=== PATIENT | female | born 1965 | race African-American/Black ===

== ENCOUNTER 2024-08-12 16:18 | Emergency (ER) | payer MEDICAID ==
[~2024-08-12] VITALS: Ht 165.1 cm; Wt 80.0 kg
[2024-08-12 16:22] VITALS: O2SAT 99
[2024-08-12] MEDS: LORAZEPAM 1MG TABLET PO ONE (16:55)
[2024-08-12 18:42] LABS: EOSINOPHILS % 0.2 % (0.0-5.0); HEMOGLOBIN. 13.4 g/dL (12.0-16.0); LYMPHOCYTES % 41.7 % (20.0-50.0); MEAN CORPUSCULAR HEMOGLOBIN 33.8 pg (28.0-32.0); MEAN CORPUSCULAR HGB CONC 34.4 g/dL (31.0-37.0); MEAN CORPUSCULAR VOLUME 98.2 fL (81.0-99.0); MEAN PLATELET VOLUME 7.1 fl (7.4-10.4); MONOCYTES % 2.8 % (2.0-8.0); NEUTROPHILS % 54.3 % (40.0-76.0); PLATELET 276 x1000/uL (130-400); RED BLOOD CELL COUNT 3.97 mill/uL (4.2-5.4); RED CELL DISTRIBUTION WIDTH 13.8 % (11.6-14.6); WHITE BLOOD COUNT 9.2 x1000/uL (4.5-11.0)
[2024-08-12 18:47] LABS: CHLORIDE 109 mEq/L (98-107); POTASSIUM 3.6 mEq/L (3.5-5.1); SODIUM 144 mEq/L (136-145)
[2024-08-12 18:49] LABS: CALCIUM 8.7 mg/dL (8.7-10.4); CARBON DIOXIDE 25 mEq/L (21-32)
[2024-08-12 18:54] LABS: CREATININE 0.7 mg/dL (0.6-1.0); GLUCOSE 76 mg/dL (70-105); UREA NITROGEN BLOOD 8 mg/dL (9-23)
[2024-08-12 18:56] LABS: ACETAMINOPHEN < 2 ug/mL (10-30)
[2024-08-12 19:03] LABS: ETHANOL BLOOD 326 mg/dL (<10)
[2024-08-12] MEDS: CHLORDIAZEPOXIDE 25MG CAPSULE PO ONE (22:01)
[2024-08-12 22:19] LABS: CLARITY URINE CLEAR (CLEAR); COLOR URINE YELLOW (YELLOW); GLUCOSE URINE NEGATIVE (NEGATIVE); KETONES URINE TRACE (NEGATIVE); LEUKOCYTE ESTERASE URINE NEGATIVE (NEGATIVE); NITRITE URINE NEGATIVE (NEGATIVE); OCCULT BLOOD URINE NEGATIVE (NEGATIVE); PH URINE 5.5 (4.5-8.0); PROTEIN URINE NEGATIVE (NEGATIVE); SPECIFIC GRAVITY URINE 1.015 (1.005-1.030); UROBILINOGEN URINE 0.2 E.U./dL (0.2-1.0)
[2024-08-12 22:27] LABS: *AMPHETAMINES SCREEN URINE NEGATIVE (NEGATIVE)
[2024-08-12 22:28] LABS: *BARBITURATES SCREEN URINE NEGATIVE (NEGATIVE); *BENZODIAZEPINES SCREEN URINE NEGATIVE (NEGATIVE); *COCAINE SCREEN URINE NEGATIVE (NEGATIVE); CANNABINOID URINE SCREEN NEGATIVE (NEGATIVE); ECSTASY MDMA SCREEN URINE NEGATIVE (NEGATIVE); METHADONE URINE SCREEN NEGATIVE (NEGATIVE); OPIATES URINE SCREEN NEGATIVE (NEGATIVE); PHENCYCLIDINE URINE SCREEN NEGATIVE (NEGATIVE)
[2024-08-13 09:30] VITALS: BP 134/80; PULSE 70; RESP 16; TEMP 36.78072; O2SAT 100
== END 2024-08-13 10:16 | disposition home or self-care (01) ==
LOC: ER 16:18
DX: R45.851 Suicidal ideations (principal); F39 Unspecified mood [affective] disorder
CPT/HCPCS: 36415; 80048; 80305; 80307; 80320; 80329; 81003; 85025; 99285; G0480

== ENCOUNTER 2024-08-13 19:11 | Emergency (ER) | payer MEDICAID ==
[~2024-08-13] VITALS: Ht 165.1 cm; Wt 65.0 kg
[2024-08-13 19:12] VITALS: O2SAT 98
[2024-08-13] MEDS: SODIUM CHLORIDE 0.9% 1,000 ML IV ONE (20:08)
[2024-08-13] MEDS: ONDANSETRON HCL 4MG/2ML INJ IV ONE (20:18)
[2024-08-13 20:25] LABS: BASOPHILS % 1.3 % (0.0-2.0); EOSINOPHILS % 0.6 % (0.0-5.0); HEMATOCRIT. 41.6 % (36.0-48.0); HEMOGLOBIN. 14.1 g/dL (12.0-16.0); MEAN CORPUSCULAR HEMOGLOBIN 33.4 pg (28.0-32.0); MEAN CORPUSCULAR HGB CONC 33.9 g/dL (31.0-37.0); MEAN CORPUSCULAR VOLUME 98.5 fL (81.0-99.0); MEAN PLATELET VOLUME 7.6 fl (7.4-10.4); MONOCYTES % 6.3 % (2.0-8.0); NEUTROPHILS % 48.8 % (40.0-76.0); PLATELET 270 x1000/uL (130-400); RED BLOOD CELL COUNT 4.22 mill/uL (4.2-5.4); RED CELL DISTRIBUTION WIDTH 13.4 % (11.6-14.6); WHITE BLOOD COUNT 8.9 x1000/uL (4.5-11.0)
[2024-08-13 20:27] LABS: CLARITY URINE CLEAR (CLEAR); COLOR URINE YELLOW (YELLOW); GLUCOSE URINE NEGATIVE (NEGATIVE); KETONES URINE NEGATIVE (NEGATIVE); LEUKOCYTE ESTERASE URINE NEGATIVE (NEGATIVE); NITRITE URINE NEGATIVE (NEGATIVE); OCCULT BLOOD URINE NEGATIVE (NEGATIVE); PROTEIN URINE NEGATIVE (NEGATIVE); SPECIFIC GRAVITY URINE 1.004 (1.005-1.030); UROBILINOGEN URINE 0.2 E.U./dL (0.2-1.0)
[2024-08-13 20:33] LABS: CHLORIDE 107 mEq/L (98-107); POTASSIUM 5.6 mEq/L (3.5-5.1); SODIUM 143 mEq/L (136-145)
[2024-08-13 20:34] LABS: CALCIUM 9.2 mg/dL (8.7-10.4); CARBON DIOXIDE 28 mEq/L (21-32)
[2024-08-13 20:35] LABS: *AMPHETAMINES SCREEN URINE NEGATIVE (NEGATIVE); *BARBITURATES SCREEN URINE NEGATIVE (NEGATIVE); *BENZODIAZEPINES SCREEN URINE NEGATIVE (NEGATIVE); *COCAINE SCREEN URINE NEGATIVE (NEGATIVE); CANNABINOID URINE SCREEN NEGATIVE (NEGATIVE); ECSTASY MDMA SCREEN URINE NEGATIVE (NEGATIVE); METHADONE URINE SCREEN NEGATIVE (NEGATIVE); OPIATES URINE SCREEN NEGATIVE (NEGATIVE); PHENCYCLIDINE URINE SCREEN NEGATIVE (NEGATIVE)
[2024-08-13 20:39] LABS: CREATININE 0.6 mg/dL (0.6-1.0); ETHANOL BLOOD 300 mg/dL (<10); GLUCOSE 95 mg/dL (70-105); UREA NITROGEN BLOOD 7 mg/dL (9-23)
[2024-08-13 20:41] LABS: ACETAMINOPHEN < 2 ug/mL (10-30); ALANINE AMINOTRANSFERASE 14 IU/L (10-49); ALBUMIN 4.8 g/dL (3.2-4.8); ASPARTATE AMINOTRANSFERASE 46 IU/L (<34); BILIRUBIN DIRECT 0.1 mg/dL (<=3.0); BILIRUBIN TOTAL 0.5 mg/dL (0.1-1.0); PROTEIN TOTAL 7.9 g/dL (6.0-8.3)
[2024-08-14 00:09] LABS: CHLORIDE 113 mEq/L (98-107); SODIUM 146 mEq/L (136-145)
[2024-08-14 00:10] LABS: CARBON DIOXIDE 26 mEq/L (21-32)
[2024-08-14 00:11] LABS: CALCIUM 8.6 mg/dL (8.7-10.4)
[2024-08-14 00:15] LABS: CREATININE 0.6 mg/dL (0.6-1.0); GLUCOSE 96 mg/dL (70-105)
[2024-08-14 00:16] LABS: UREA NITROGEN BLOOD 7 mg/dL (9-23)
[2024-08-14 00:37] LABS: POTASSIUM 3.5 mEq/L (3.5-5.1)
[2024-08-14] MEDS: CHLORDIAZEPOXIDE 25MG CAPSULE PO ONE (02:36)
[2024-08-14 09:25] VITALS: BP 132/72; PULSE 73; RESP 14; TEMP 36.78072; O2SAT 98
== END 2024-08-14 12:01 | disposition home or self-care (01) ==
LOC: ER 19:11
DX: R45.851 Suicidal ideations (principal); F10.229 Alcohol dependence with intoxication, unspecified; Z20.822 Contact with and (suspected) exposure to COVID-19; Y90.8 Blood alcohol level of 240 mg/100 ml or more
CPT/HCPCS: 80076; 80305; 80048; 81003; 80307; 80329; 80320; 85025; 36415; 93005; 96374; 99285; 87426; J2405; J7030; Z7610; G0480

== ENCOUNTER 2024-08-22 10:55 | Emergency (ER) | payer MEDICAID ==
[~2024-08-22] VITALS: Ht 170.2 cm; Wt 65.0 kg
[2024-08-22 11:03] VITALS: O2SAT 97
[2024-08-22 11:45] LABS: BASOPHILS % 0.6 % (0.0-2.0); EOSINOPHILS % 0.5 % (0.0-5.0); HEMATOCRIT. 38.8 % (36.0-48.0); HEMOGLOBIN. 13.1 g/dL (12.0-16.0); LYMPHOCYTES % 45.2 % (20.0-50.0); MEAN CORPUSCULAR HEMOGLOBIN 33.5 pg (28.0-32.0); MEAN CORPUSCULAR HGB CONC 33.7 g/dL (31.0-37.0); MEAN CORPUSCULAR VOLUME 99.3 fL (81.0-99.0); MEAN PLATELET VOLUME 7.4 fl (7.4-10.4); NEUTROPHILS % 47.7 % (40.0-76.0); PLATELET 187 x1000/uL (130-400); WHITE BLOOD COUNT 6.7 x1000/uL (4.5-11.0)
[2024-08-22 11:57] LABS: CHLORIDE 108 mEq/L (98-107); POTASSIUM 3.5 mEq/L (3.5-5.1); SODIUM 144 mEq/L (136-145)
[2024-08-22 11:58] LABS: CALCIUM 8.5 mg/dL (8.7-10.4); CARBON DIOXIDE 23 mEq/L (21-32)
[2024-08-22 12:03] LABS: CREATININE 0.6 mg/dL (0.6-1.0); GLUCOSE 71 mg/dL (70-105); UREA NITROGEN BLOOD 9 mg/dL (9-23)
[2024-08-22 12:12] LABS: ETHANOL BLOOD 353 mg/dL (<10)
[2024-08-23 00:22] LABS: CLARITY URINE CLEAR (CLEAR); COLOR URINE YELLOW (YELLOW); GLUCOSE URINE NEGATIVE (NEGATIVE); KETONES URINE 1+ (NEGATIVE); LEUKOCYTE ESTERASE URINE NEGATIVE (NEGATIVE); NITRITE URINE NEGATIVE (NEGATIVE); OCCULT BLOOD URINE 1+ (NEGATIVE); PROTEIN URINE NEGATIVE (NEGATIVE); SPECIFIC GRAVITY URINE 1.014 (1.005-1.030)
[2024-08-23 00:30] LABS: *AMPHETAMINES SCREEN URINE NEGATIVE (NEGATIVE); *BARBITURATES SCREEN URINE NEGATIVE (NEGATIVE); *BENZODIAZEPINES SCREEN URINE PRESUMPTIVE POSITIVE (NEGATIVE); *COCAINE SCREEN URINE NEGATIVE (NEGATIVE); CANNABINOID URINE SCREEN NEGATIVE (NEGATIVE); ECSTASY MDMA SCREEN URINE NEGATIVE (NEGATIVE); METHADONE URINE SCREEN NEGATIVE (NEGATIVE); OPIATES URINE SCREEN NEGATIVE (NEGATIVE); PHENCYCLIDINE URINE SCREEN NEGATIVE (NEGATIVE)
[2024-08-23 00:42] LABS: BACTERIA URINE 2+; SQUAMOUS EPITHELIAL CELL URINE FEW /lpf (RARE/1+); WBC URINE 0-2 /hpf (0-2)
[2024-08-23] MEDS: ONDANSETRON 4MG ODT PO ONE (02:46)
[2024-08-23 10:41] VITALS: BP 127/71; PULSE 68; RESP 18; TEMP 36.89184; O2SAT 99
== END 2024-08-23 07:30 | disposition home or self-care (01) ==
LOC: ER 11:00
DX: R45.851 Suicidal ideations (principal); F10.129 Alcohol abuse with intoxication, unspecified; F12.10 Cannabis abuse, uncomplicated; Z20.822 Contact with and (suspected) exposure to COVID-19; Y90.8 Blood alcohol level of 240 mg/100 ml or more
CPT/HCPCS: 80305; 80048; 81003; 80307; 80329; 80320; 85025; 36415; 99285; 87426; Q0162; G0480

== ENCOUNTER 2024-08-24 03:41 | Emergency (ER) | payer MEDICAID ==
[~2024-08-24] VITALS: Ht 172.7 cm; Wt 77.0 kg
[2024-08-24 03:43] VITALS: O2SAT 95
[2024-08-24 04:41] LABS: CHLORIDE 105 mEq/L (98-107); SODIUM 141 mEq/L (136-145)
[2024-08-24 04:42] LABS: CALCIUM 9.3 mg/dL (8.7-10.4); CARBON DIOXIDE 27 mEq/L (21-32)
[2024-08-24 04:47] LABS: CREATININE 0.6 mg/dL (0.6-1.0); GLUCOSE 98 mg/dL (70-105); UREA NITROGEN BLOOD 5 mg/dL (9-23)
[2024-08-24 04:49] LABS: ACETAMINOPHEN 8 ug/mL (10-30)
[2024-08-24 04:56] LABS: ETHANOL BLOOD 309 mg/dL (<10)
[2024-08-24 05:18] LABS: CLARITY URINE CLEAR (CLEAR); COLOR URINE YELLOW (YELLOW); GLUCOSE URINE NEGATIVE (NEGATIVE); KETONES URINE NEGATIVE (NEGATIVE); LEUKOCYTE ESTERASE URINE NEGATIVE (NEGATIVE); NITRITE URINE NEGATIVE (NEGATIVE); OCCULT BLOOD URINE NEGATIVE (NEGATIVE); PROTEIN URINE NEGATIVE (NEGATIVE); SPECIFIC GRAVITY URINE 1.006 (1.005-1.030); UROBILINOGEN URINE 0.2 E.U./dL (0.2-1.0)
[2024-08-24] MEDS: IBUPROFEN 600MG TABLET PO ONE (05:20)
[2024-08-24 05:21] LABS: BASOPHILS % 0.5 % (0.0-2.0); EOSINOPHILS % 1.2 % (0.0-5.0); HEMATOCRIT. 41.6 % (36.0-48.0); HEMOGLOBIN. 14.2 g/dL (12.0-16.0); LYMPHOCYTES % 53.5 % (20.0-50.0); MEAN CORPUSCULAR HGB CONC 34.2 g/dL (31.0-37.0); MEAN CORPUSCULAR VOLUME 99.6 fL (81.0-99.0); MEAN PLATELET VOLUME 7.9 fl (7.4-10.4); MONOCYTES % 7.6 % (2.0-8.0); NEUTROPHILS % 37.2 % (40.0-76.0); PLATELET 197 x1000/uL (130-400); RED BLOOD CELL COUNT 4.18 mill/uL (4.2-5.4); RED CELL DISTRIBUTION WIDTH 13.7 % (11.6-14.6); WHITE BLOOD COUNT 6.2 x1000/uL (4.5-11.0)
[2024-08-24 05:27] LABS: *AMPHETAMINES SCREEN URINE NEGATIVE (NEGATIVE); *BARBITURATES SCREEN URINE NEGATIVE (NEGATIVE); *BENZODIAZEPINES SCREEN URINE PRESUMPTIVE POSITIVE (NEGATIVE); *COCAINE SCREEN URINE NEGATIVE (NEGATIVE); CANNABINOID URINE SCREEN NEGATIVE (NEGATIVE); ECSTASY MDMA SCREEN URINE NEGATIVE (NEGATIVE); METHADONE URINE SCREEN NEGATIVE (NEGATIVE); OPIATES URINE SCREEN NEGATIVE (NEGATIVE); PHENCYCLIDINE URINE SCREEN NEGATIVE (NEGATIVE)
[2024-08-24] MEDS: ARIPIPRAZOLE 5MG TABLET PO SCH (11:19)
[2024-08-24] MEDS: SERTRALINE HCL 50MG TABLET PO SCH (11:19)
[2024-08-24] MEDS: TRAZODONE HCL 50MG TABLET PO SCH (21:00)
[2024-08-25 14:54] VITALS: TEMP 36.78072
[2024-08-25 15:33] VITALS: BP 142/60; PULSE 60; RESP 16; O2SAT 100
[2024-08-25] MEDS ORDERED: CLONIDINE 0.1MG TABLET PO ONE (15:45)
== END 2024-08-25 16:06 ==
LOC: ER 03:41
DX: F20.9 Schizophrenia, unspecified (principal); F17.200 Nicotine dependence, unspecified, uncomplicated; F41.9 Anxiety disorder, unspecified; F10.20 Alcohol dependence, uncomplicated; F31.9 Bipolar disorder, unspecified; Z20.822 Contact with and (suspected) exposure to COVID-19; Z88.0 Allergy status to penicillin; Z79.899 Other long term (current) drug therapy; Z59.00 Homelessness unspecified; Y90.8 Blood alcohol level of 240 mg/100 ml or more
CPT/HCPCS: 36415; 73562; 80048; 80305; 80307; 80320; 80329; 81003; 85025; 87426; 93005; 99285; G0480

== ENCOUNTER 2024-08-30 08:15 | Emergency (ER) | payer MEDICAID ==
[~2024-08-30] VITALS: Ht 167.6 cm; Wt 68.0 kg
[2024-08-30 08:16] VITALS: O2SAT 94
[2024-08-30 09:35] LABS: CHLORIDE 113 mEq/L (98-107); DIFFERENTIAL COMMENT 0; EOSINOPHILS % 1.1 % (0.0-5.0); HEMATOCRIT. 39.4 % (36.0-48.0); HEMOGLOBIN. 12.8 g/dL (12.0-16.0); LYMPHOCYTES % 47.9 % (20.0-50.0); MEAN CORPUSCULAR HEMOGLOBIN 32.8 pg (28.0-32.0); MEAN CORPUSCULAR HGB CONC 32.5 g/dL (31.0-37.0); MEAN CORPUSCULAR VOLUME 101.1 fL (81.0-99.0); MEAN PLATELET VOLUME 7.8 fl (7.4-10.4); PLATELET 184 x1000/uL (130-400); POTASSIUM 3.3 mEq/L (3.5-5.1); RED CELL DISTRIBUTION WIDTH 15.1 % (11.6-14.6); SODIUM 146 mEq/L (136-145); WHITE BLOOD COUNT 6.1 x1000/uL (4.5-11.0)
[2024-08-30 09:36] LABS: CALCIUM 8.4 mg/dL (8.7-10.4); CARBON DIOXIDE 28 mEq/L (21-32)
[2024-08-30 09:41] LABS: CREATININE 0.5 mg/dL (0.6-1.0); GLUCOSE 93 mg/dL (70-105); UREA NITROGEN BLOOD 9 mg/dL (9-23)
[2024-08-30 09:43] LABS: ACETAMINOPHEN < 2 ug/mL (10-30)
[2024-08-30 09:50] LABS: ETHANOL BLOOD 345 mg/dL (<10)
[2024-08-30 09:56] LABS: HCG SCREEN NEGATIVE
[2024-08-30] MEDS: POTASSIUM CHLORIDE 20MEQ/PACKET PO NR (14:03)
[2024-08-30] MEDS ORDERED: DIPHENHYDRAMINE 50MG CAPSULE PO ONE (20:30)
[2024-08-30] MEDS: DIPHENHYDRAMINE 25MG CAPSULE PO NR (21:07)
[2024-08-31 04:52] VITALS: BP 118/64; PULSE 72; RESP 18; TEMP 36.89184; O2SAT 100
[2024-08-31 05:26] LABS: *AMPHETAMINES SCREEN URINE NEGATIVE (NEGATIVE); *BARBITURATES SCREEN URINE NEGATIVE (NEGATIVE); *BENZODIAZEPINES SCREEN URINE NEGATIVE (NEGATIVE); *COCAINE SCREEN URINE NEGATIVE (NEGATIVE)
[2024-08-31 05:27] LABS: CANNABINOID URINE SCREEN NEGATIVE (NEGATIVE); ECSTASY MDMA SCREEN URINE NEGATIVE (NEGATIVE); METHADONE URINE SCREEN NEGATIVE (NEGATIVE); OPIATES URINE SCREEN NEGATIVE (NEGATIVE); PHENCYCLIDINE URINE SCREEN NEGATIVE (NEGATIVE)
== END 2024-08-31 09:50 | disposition home or self-care (01) ==
LOC: ER 09:12
DX: R45.851 Suicidal ideations (principal); F41.9 Anxiety disorder, unspecified; F10.20 Alcohol dependence, uncomplicated; F32.A Depression, unspecified; F20.9 Schizophrenia, unspecified; Z88.0 Allergy status to penicillin; Z20.822 Contact with and (suspected) exposure to COVID-19; Y90.8 Blood alcohol level of 240 mg/100 ml or more
CPT/HCPCS: 80048; 80307; 80329; 80320; 84703; 85025; 36415; 99285; 87426; 80305; Q0163; Z7610; G0480

== ENCOUNTER 2024-09-04 20:32 | Emergency (ER) | payer MEDICAID ==
[~2024-09-04] VITALS: Ht 172.7 cm; Wt 64.0 kg
[2024-09-04 20:36] VITALS: BP 150/90; PULSE 120; RESP 14; TEMP 98.6; O2SAT 98
[2024-09-04 21:49] LABS: CHLORIDE 103 mEq/L (98-107); SODIUM 139 mEq/L (136-145)
[2024-09-04 21:50] LABS: BASOPHILS % 0.6 % (0.0-2.0); CARBON DIOXIDE 24 mEq/L (21-32); DIFFERENTIAL COMMENT 0; EOSINOPHILS % 0.1 % (0.0-5.0); HEMATOCRIT. 44.7 % (36.0-48.0); HEMOGLOBIN. 15.1 g/dL (12.0-16.0); LYMPHOCYTES % 41.4 % (20.0-50.0); MEAN CORPUSCULAR HEMOGLOBIN 33.8 pg (28.0-32.0); MEAN CORPUSCULAR HGB CONC 33.7 g/dL (31.0-37.0); MEAN CORPUSCULAR VOLUME 100.4 fL (81.0-99.0); MONOCYTES % 11.4 % (2.0-8.0); NEUTROPHILS % 46.5 % (40.0-76.0); PLATELET 273 x1000/uL (130-400); RED BLOOD CELL COUNT 4.46 mill/uL (4.2-5.4); RED CELL DISTRIBUTION WIDTH 14.8 % (11.6-14.6); WHITE BLOOD COUNT 6.5 x1000/uL (4.5-11.0)
[2024-09-04 21:51] LABS: CALCIUM 10.1 mg/dL (8.7-10.4)
[2024-09-04 21:55] LABS: CREATININE 0.7 mg/dL (0.6-1.0)
[2024-09-04 21:56] LABS: GLUCOSE 101 mg/dL (70-105); UREA NITROGEN BLOOD 8 mg/dL (9-23)
[2024-09-04 21:58] LABS: ACETAMINOPHEN < 2 ug/mL (10-30)
[2024-09-04 22:05] LABS: ETHANOL BLOOD 327 mg/dL (<10)
[2024-09-04 22:11] LABS: POTASSIUM 2.6 mEq/L (3.5-5.1)
[2024-09-05] MEDS ORDERED: POTASSIUM CHLORIDE 20MEQ/PACKET PO ONE (02:30)
== END 2024-09-04 22:21 | disposition left against medical advice (07) ==
LOC: ER 20:32
DX: T51.0X1A Toxic effect of ethanol, accidental (unintentional), initial encounter (principal); F20.9 Schizophrenia, unspecified; F41.9 Anxiety disorder, unspecified; Z88.0 Allergy status to penicillin; X58.XXXA Exposure to other specified factors, initial encounter
CPT/HCPCS: 36415; 80048; 80307; 80320; 80329; 85025; 99283; G0480

== ENCOUNTER 2024-09-05 10:39 | Emergency (ER) | payer MEDICAID ==
[~2024-09-05] VITALS: Ht 165.1 cm; Wt 70.0 kg
[2024-09-05 10:42] VITALS: O2SAT 95
[2024-09-05 12:03] LABS: BASOPHILS % 0.3 % (0.0-2.0); DIFFERENTIAL COMMENT 0; HEMATOCRIT. 44.2 % (36.0-48.0); HEMOGLOBIN. 14.6 g/dL (12.0-16.0); LYMPHOCYTES % 35.8 % (20.0-50.0); MEAN CORPUSCULAR HEMOGLOBIN 33.2 pg (28.0-32.0); MEAN CORPUSCULAR HGB CONC 32.9 g/dL (31.0-37.0); MEAN CORPUSCULAR VOLUME 100.8 fL (81.0-99.0); MEAN PLATELET VOLUME 8.1 fl (7.4-10.4); NEUTROPHILS % 52.9 % (40.0-76.0); PLATELET 247 x1000/uL (130-400); RED BLOOD CELL COUNT 4.39 mill/uL (4.2-5.4); WHITE BLOOD COUNT 9.6 x1000/uL (4.5-11.0)
[2024-09-05 12:15] LABS: CHLORIDE 106 mEq/L (98-107); POTASSIUM 4.1 mEq/L (3.5-5.1); SODIUM 141 mEq/L (136-145)
[2024-09-05 12:16] LABS: CALCIUM 9.2 mg/dL (8.7-10.4); CARBON DIOXIDE 25 mEq/L (21-32)
[2024-09-05 12:18] LABS: HCG SCREEN NEGATIVE
[2024-09-05 12:21] LABS: CREATININE 0.7 mg/dL (0.6-1.0); GLUCOSE 98 mg/dL (70-105); UREA NITROGEN BLOOD 9 mg/dL (9-23)
[2024-09-05 12:30] LABS: ETHANOL BLOOD 331 mg/dL (<10)
[2024-09-06 04:09] LABS: CLARITY URINE CLEAR (CLEAR); COLOR URINE YELLOW (YELLOW); GLUCOSE URINE NEGATIVE (NEGATIVE); KETONES URINE NEGATIVE (NEGATIVE); LEUKOCYTE ESTERASE URINE TRACE (NEGATIVE); NITRITE URINE NEGATIVE (NEGATIVE); OCCULT BLOOD URINE NEGATIVE (NEGATIVE); PROTEIN URINE TRACE (NEGATIVE); SPECIFIC GRAVITY URINE 1.017 (1.005-1.030); UROBILINOGEN URINE 0.2 E.U./dL (0.2-1.0)
[2024-09-06 04:17] LABS: *AMPHETAMINES SCREEN URINE NEGATIVE (NEGATIVE); *BARBITURATES SCREEN URINE NEGATIVE (NEGATIVE); *BENZODIAZEPINES SCREEN URINE NEGATIVE (NEGATIVE); *COCAINE SCREEN URINE NEGATIVE (NEGATIVE); CANNABINOID URINE SCREEN NEGATIVE (NEGATIVE); METHADONE URINE SCREEN NEGATIVE (NEGATIVE); OPIATES URINE SCREEN NEGATIVE (NEGATIVE); PHENCYCLIDINE URINE SCREEN NEGATIVE (NEGATIVE)
[2024-09-06 04:18] LABS: ECSTASY MDMA SCREEN URINE NEGATIVE (NEGATIVE)
[2024-09-06 06:30] LABS: SQUAMOUS EPITHELIAL CELL URINE 1+ /lpf (RARE/1+)
[2024-09-06 06:31] LABS: RBC URINE 0-2 /hpf (0-2); WBC URINE 0-2 /hpf (0-2)
[2024-09-06 06:36] LABS: BACTERIA URINE 1+
[2024-09-06] MEDS: QUETIAPINE FUMARATE 50MG TABLET PO SCH (13:26)
[2024-09-06 13:45] VITALS: BP 119/64; PULSE 70; RESP 18; TEMP 36.39180; O2SAT 96
== END 2024-09-06 14:26 ==
LOC: ER 10:39
DX: R45.851 Suicidal ideations (principal); F10.20 Alcohol dependence, uncomplicated; F20.9 Schizophrenia, unspecified; Z88.0 Allergy status to penicillin; Z59.00 Homelessness unspecified; Z20.822 Contact with and (suspected) exposure to COVID-19; Y90.8 Blood alcohol level of 240 mg/100 ml or more
CPT/HCPCS: 80048; 80320; 84703; 85025; 36415; 99285; 80305; 81003; 87426; Z7610; G0480

== ENCOUNTER 2024-09-17 08:58 | Inpatient (IN) | payer MEDICAID ==
[~2024-09-17] VITALS: Ht 170.2 cm; Wt 75.3 kg
[2024-09-17] MEDS ORDERED: IPRATROPIUM/ALBUTEROL 0.5-3(2.5)MG/3ML NEB HHN ONE (10:15)
[2024-09-17 10:23] LABS: BASOPHILS % 0.4 % (0.0-2.0); EOSINOPHILS % 0.1 % (0.0-5.0); HEMATOCRIT. 44.5 % (36.0-48.0); HEMOGLOBIN. 14.8 g/dL (12.0-16.0); LYMPHOCYTES % 36.6 % (20.0-50.0); MEAN CORPUSCULAR HEMOGLOBIN 33.2 pg (28.0-32.0); MEAN CORPUSCULAR HGB CONC 33.3 g/dL (31.0-37.0); MEAN CORPUSCULAR VOLUME 99.9 fL (81.0-99.0); MEAN PLATELET VOLUME 7.5 fl (7.4-10.4); MONOCYTES % 10.3 % (2.0-8.0); NEUTROPHILS % 52.6 % (40.0-76.0); PLATELET 234 x1000/uL (130-400); RED BLOOD CELL COUNT 4.45 mill/uL (4.2-5.4); RED CELL DISTRIBUTION WIDTH 15.4 % (11.6-14.6); WHITE BLOOD COUNT 9.3 x1000/uL (4.5-11.0)
[2024-09-17 10:36] LABS: CHLORIDE 106 mEq/L (98-107); SODIUM 143 mEq/L (136-145)
[2024-09-17 10:37] LABS: CALCIUM 9.5 mg/dL (8.7-10.4); CARBON DIOXIDE 25 mEq/L (21-32)
[2024-09-17 10:42] LABS: CREATININE 0.6 mg/dL (0.6-1.0); GLUCOSE 101 mg/dL (70-105); UREA NITROGEN BLOOD 8 mg/dL (9-23)
[2024-09-17 10:43] LABS: TROPONIN I HIGH SENSITIVITY 6 ng/L (3.0-34)
[2024-09-17 10:53] LABS: POTASSIUM 2.6 mEq/L (3.5-5.1)
[2024-09-17 10:54] LABS: ETHANOL BLOOD 293 mg/dL (<10)
[2024-09-17 13:01] LABS: TROPONIN I HIGH SENSITIVITY 6 ng/L (3.0-34)
[2024-09-17] MEDS: IPRATROPIUM/ALBUTEROL 0.5-3(2.5)MG/3ML NEB HHN NR (13:35)
[2024-09-17] MEDS: MAGNESIUM 2 G PREMIX 50 ML IV ONE (15:08)
[2024-09-17] MEDS: KCL 10MEQ/50ML PREMIX 50 ML IV SCH (15:35)
[2024-09-17] MEDS: POTASSIUM BICARB/CIT ACID 25 MEQ TABLET.EFF PO ONE (15:35)
[2024-09-17] MEDS: FOLIC ACID 1 MG, THIAMINE HCL 100 MG, MVI, ADULT NO.1 10 ML in DEXTROSE 5% WATER 1,000 ML IV ONE (15:35)
[2024-09-17] MEDS ORDERED: MAGNESIUM/ALUMINUM HYDROXIDE/SIMETHICONE 30ML UDC PO PRN (16:00)
[2024-09-17] MEDS ORDERED: CLONIDINE 0.1MG TABLET PO PRN (16:00)
[2024-09-17] MEDS ORDERED: DOCUSATE SODIUM 100MG CAPSULE PO PRN (16:00)
[2024-09-17] MEDS ORDERED: LORAZEPAM 2MG/ML INJ IV PRN (16:00)
[2024-09-17] MEDS ORDERED: IPRATROPIUM/ALBUTEROL 0.5-3(2.5)MG/3ML NEB HHN PRN (16:00)
[2024-09-17] MEDS ORDERED: DEXTROSE 50% WATER 50ML SYRINGE IV PRN (17:00)
[2024-09-17] MEDS: BLOOD SUGAR DIAGNOSTIC STRIP TEST SCH (17:00)
[2024-09-17 17:44] LABS: FOLIC ACID (FOLATE) SERUM 13.32 ng/mL (>5.38); VITAMIN B12 SERUM 532 pg/mL (211-911)
[2024-09-17] MEDS: INSULIN LISPRO 100 UNITS/ML SUBCUT SCH (18:20)
[2024-09-17 20:00] VITALS: BP 143/87; RESP 20; TEMP 36.6696; O2SAT 96
[2024-09-17] MEDS: CHLORDIAZEPOXIDE 25MG CAPSULE PO SCH (20:00)
[2024-09-17 21:16] LABS: AMYLASE 62 IU/L (30-118)
[2024-09-17 21:17] LABS: PHOSPHORUS 3.9 mg/dL (2.5-4.9)
[2024-09-17 21:38] VITALS: BP 142/100; PULSE 79; RESP 20; TEMP 36.33624; O2SAT 99
[2024-09-17 22:18] VITALS: BP 149/95; PULSE 83; RESP 18; TEMP 36.5292
[2024-09-17] MEDS ORDERED: DULA1.5P SUBCUT (22:41)
[2024-09-17] MEDS ORDERED: GABA-532 PO (22:41)
[2024-09-17] MEDS ORDERED: NICO-786 (22:41)
[2024-09-17] MEDS ORDERED: ARIP10TA56 PO (22:41)
[2024-09-17] MEDS ORDERED: SERT-112 PO (22:41)
[2024-09-17] MEDS ORDERED: AMLO10TA80 PO (22:41)
[2024-09-17] MEDS ORDERED: TRAZ-252 PO (22:41)
[2024-09-17] MEDS ORDERED: ACETAMINOPHEN 325MG TABLET PO PRN (23:00)
[2024-09-17] MEDS: POTASSIUM CHLORIDE 20MEQ TABLET SR PO NR (23:06)
[2024-09-17] MEDS: TRAZODONE HCL 50MG TABLET PO SCH (23:06)
[2024-09-18] VITALS: BP 149/89; PULSE 105; RESP 20; TEMP 36.114; O2SAT 97
[2024-09-18 04:00] VITALS: BP 117/96; PULSE 85; RESP 20; TEMP 36.6696; O2SAT 98
[2024-09-18 06:57] LABS: CHLORIDE 103 mEq/L (98-107); POTASSIUM 3.1 mEq/L (3.5-5.1); SODIUM 138 mEq/L (136-145)
[2024-09-18 06:58] LABS: CARBON DIOXIDE 30 mEq/L (21-32)
[2024-09-18 06:59] LABS: CALCIUM 9.4 mg/dL (8.7-10.4)
[2024-09-18 07:03] LABS: CREATINE KINASE MB FRACTION < 0.5 ng/mL (0.5-3.6); CREATININE 0.6 mg/dL (0.6-1.0); GLUCOSE 108 mg/dL (70-105); UREA NITROGEN BLOOD 13 mg/dL (9-23)
[2024-09-18 07:05] LABS: ALANINE AMINOTRANSFERASE 30 IU/L (10-49); ALBUMIN 3.7 g/dL (3.2-4.8); ASPARTATE AMINOTRANSFERASE 40 IU/L (<34); HEMATOCRIT 40.9 % (36.0-48.0); HEMOGLOBIN 13.7 g/dL (12.0-16.0); MEAN CORPUSCULAR HEMOGLOBIN 33.8 pg (28.0-32.0); MEAN CORPUSCULAR HGB CONC 33.6 g/dL (31.0-37.0); MEAN CORPUSCULAR VOLUME 100.6 fL (81.0-99.0); PLATELET 171 x1000/uL (130-400); RED BLOOD CELL COUNT 4.06 mill/uL (4.2-5.4); RED CELL DISTRIBUTION WIDTH 15.6 % (11.6-14.6); WHITE BLOOD COUNT 4.7 x1000/uL (4.5-11.0)
[2024-09-18 07:06] LABS: BILIRUBIN TOTAL 0.8 mg/dL (0.1-1.0); PROTEIN TOTAL 6.8 g/dL (6.0-8.3); TROPONIN I HIGH SENSITIVITY < 4 ng/L (3.0-34)
[2024-09-18 08:00] VITALS: BP 121/83; PULSE 89; RESP 16; TEMP 36.33624; O2SAT 97
[2024-09-18] MEDS: NICOTINE 21MG PATCH TD SCH (08:20)
[2024-09-18] MEDS: ARIPIPRAZOLE 5MG TABLET PO SCH (08:20)
[2024-09-18] MEDS: MULTIVITAMINS,THER W-MINERALS TABLET PO SCH (08:20)
[2024-09-18] MEDS: FOLIC ACID 1MG TABLET PO SCH (08:20)
[2024-09-18] MEDS ORDERED: SERTRALINE HCL 50MG TABLET PO SCH (09:00)
[2024-09-18] MEDS ORDERED: MVI, ADULT NO.1 10 ML, FOLIC ACID 1 MG, THIAMINE HCL 100 MG in SODIUM CHLORIDE 0.9% 1,0... IV ONE (09:00)
[2024-09-18 12:00] VITALS: BP 114/79; PULSE 66; RESP 16; TEMP 36.55848; O2SAT 98
[2024-09-18 13:43] LABS: HEPATITIS B SURFACE ANTIGEN NEGATIVE (Negative)
[2024-09-18 14:05] LABS: HEPATITIS C AB NON REACTIVE (Neg) (Negative)
[2024-09-18 16:00] VITALS: BP 109/81; PULSE 79; RESP 16; TEMP 36.83628; O2SAT 99
[2024-09-18] MEDS: MVI, ADULT NO.1 10 ML, FOLIC ACID 1 MG, THIAMINE HCL 100 MG in SODIUM CHLORIDE 0.9% 1,0... IV ONE (16:37)
[2024-09-18] MEDS: POTASSIUM CHLORIDE 20MEQ TABLET SR PO NR (19:02)
[2024-09-18] MEDS ORDERED: TRAZODONE HCL 50MG TABLET PO SCH (21:00)
[2024-09-19 08:48] LABS: HEMATOCRIT 38.9 % (36.0-48.0); MEAN CORPUSCULAR HEMOGLOBIN 34.3 pg (28.0-32.0); MEAN CORPUSCULAR HGB CONC 33.3 g/dL (31.0-37.0); PLATELET 135 x1000/uL (130-400); RED BLOOD CELL COUNT 3.78 mill/uL (4.2-5.4); RED CELL DISTRIBUTION WIDTH 15.7 % (11.6-14.6); WHITE BLOOD COUNT 4.6 x1000/uL (4.5-11.0)
[2024-09-19 08:49] VITALS: BP 118/79; PULSE 88; RESP 18; TEMP 36.6696; TEMP 36.66960; O2SAT 100
[2024-09-19 09:32] LABS: CARBON DIOXIDE 25 mEq/L (21-32); CHLORIDE 106 mEq/L (98-107); POTASSIUM 4.1 mEq/L (3.5-5.1); SODIUM 137 mEq/L (136-145)
[2024-09-19 09:37] LABS: CREATININE 0.5 mg/dL (0.6-1.0)
[2024-09-19] MEDS: THIAMINE HCL 100MG TABLET PO SCH (09:37)
[2024-09-19 09:38] LABS: GLUCOSE 87 mg/dL (70-105); UREA NITROGEN BLOOD 10 mg/dL (9-23)
[2024-09-19 09:40] LABS: PHOSPHORUS 3.9 mg/dL (2.5-4.9)
[2024-09-19 14:03] VITALS: BP 116/75; PULSE 76; TEMP 97.9; O2SAT 98
== END 2024-09-19 14:45 | disposition home or self-care (01) | DRG 425 ==
LOC: ER 08:58 → EDBEDREQTM 14:08 → EDBEDREQ 14:08 → 5WST 19:49 → 7WST 21:51
PROVIDERS: ADMIT Internal Medicine; ATTEND Internal Medicine
PROC: GZ56ZZZ Individual Psychotherapy, Supportive (ICD-10-PCS; principal; 2024-09-17)
DX: E87.6 Hypokalemia (principal); R45.851 Suicidal ideations; F25.9 Schizoaffective disorder, unspecified; E83.42 Hypomagnesemia; D75.89 Other specified diseases of blood and blood-forming organs; E11.9 Type 2 diabetes mellitus without complications; F10.229 Alcohol dependence with intoxication, unspecified; F31.9 Bipolar disorder, unspecified; K59.00 Constipation, unspecified; I10 Essential (primary) hypertension; F17.210 Nicotine dependence, cigarettes, uncomplicated; F41.9 Anxiety disorder, unspecified; Y90.8 Blood alcohol level of 240 mg/100 ml or more; R07.9 Chest pain, unspecified; T50.996A Underdosing of other drugs, medicaments and biological substances, initial encounter; M25.562 Pain in left knee; J45.909 Unspecified asthma, uncomplicated; Z79.899 Other long term (current) drug therapy; Z90.710 Acquired absence of both cervix and uterus; Z88.0 Allergy status to penicillin; Z91.51 Personal history of suicidal behavior; Z91.199 Patient's noncompliance with other medical treatment and regimen due to unspecified reason; Z91.148 Patient's other noncompliance with medication regimen for other reason; Z82.49 Family history of ischemic heart disease and other diseases of the circulatory system; Y92.89 Other specified places as the place of occurrence of the external cause
CPT/HCPCS: 36415; 71045; 80048; 80053; 80320; 82040; 82150; 82553; 82607; 82746; 82962; 83036; 83735; 84100; 84132; 84484; 85025; 85027; 86705; 87340; 93005; 93970; 99285; J3411; J3475; J3480; J3490; J7030; J7070; G0480

== ENCOUNTER 2024-09-21 00:05 | Emergency (ER) | payer MEDICAID ==
[~2024-09-21] VITALS: Ht 170.2 cm; Wt 68.0 kg
[~2024-09-21 00:05] MED LIST: AMLO10TA80 PO; ARIP10TA56 PO; DULA1.5P SUBCUT; GABA-532 PO; NICO-786; SERT-112 PO; TRAZ-252 PO
[2024-09-21 00:20] VITALS: O2SAT 97
[2024-09-21 01:55] LABS: CLARITY URINE CLEAR (CLEAR); COLOR URINE YELLOW (YELLOW); GLUCOSE URINE NEGATIVE (NEGATIVE); KETONES URINE NEGATIVE (NEGATIVE); LEUKOCYTE ESTERASE URINE NEGATIVE (NEGATIVE); NITRITE URINE NEGATIVE (NEGATIVE); OCCULT BLOOD URINE NEGATIVE (NEGATIVE); PH URINE 6.5 (4.5-8.0); PROTEIN URINE NEGATIVE (NEGATIVE); UROBILINOGEN URINE 0.2 E.U./dL (0.2-1.0)
[2024-09-21 01:56] LABS: BASOPHILS % 0.7 % (0.0-2.0); DIFFERENTIAL COMMENT 0; EOSINOPHILS % 0.6 % (0.0-5.0); HEMATOCRIT. 36.5 % (36.0-48.0); HEMOGLOBIN. 12.6 g/dL (12.0-16.0); LYMPHOCYTES % 63.6 % (20.0-50.0); MEAN CORPUSCULAR HEMOGLOBIN 34.9 pg (28.0-32.0); MEAN CORPUSCULAR HGB CONC 34.4 g/dL (31.0-37.0); MEAN CORPUSCULAR VOLUME 101.3 fL (81.0-99.0); MEAN PLATELET VOLUME 7.5 fl (7.4-10.4); MONOCYTES % 7.3 % (2.0-8.0); NEUTROPHILS % 27.8 % (40.0-76.0); PLATELET 174 x1000/uL (130-400); RED BLOOD CELL COUNT 3.61 mill/uL (4.2-5.4); RED CELL DISTRIBUTION WIDTH 16.1 % (11.6-14.6); WHITE BLOOD COUNT 5.3 x1000/uL (4.5-11.0)
[2024-09-21 02:06] LABS: CARBON DIOXIDE 31 mEq/L (21-32); CHLORIDE 110 mEq/L (98-107); POTASSIUM 3.6 mEq/L (3.5-5.1); SODIUM 147 mEq/L (136-145)
[2024-09-21 02:07] LABS: CALCIUM 8.4 mg/dL (8.7-10.4)
[2024-09-21 02:10] LABS: *AMPHETAMINES SCREEN URINE NEGATIVE (NEGATIVE); *BARBITURATES SCREEN URINE NEGATIVE (NEGATIVE); *BENZODIAZEPINES SCREEN URINE PRESUMPTIVE POSITIVE (NEGATIVE); *COCAINE SCREEN URINE NEGATIVE (NEGATIVE); CANNABINOID URINE SCREEN NEGATIVE (NEGATIVE); ECSTASY MDMA SCREEN URINE NEGATIVE (NEGATIVE); METHADONE URINE SCREEN NEGATIVE (NEGATIVE); OPIATES URINE SCREEN NEGATIVE (NEGATIVE); PHENCYCLIDINE URINE SCREEN NEGATIVE (NEGATIVE)
[2024-09-21 02:11] LABS: CREATININE 0.7 mg/dL (0.6-1.0)
[2024-09-21 02:12] LABS: ETHANOL BLOOD 300 mg/dL (<10); GLUCOSE 113 mg/dL (70-105); UREA NITROGEN BLOOD 7 mg/dL (9-23)
[2024-09-21 02:13] LABS: ACETAMINOPHEN < 2 ug/mL (10-30); ALANINE AMINOTRANSFERASE 33 IU/L (10-49); ASPARTATE AMINOTRANSFERASE 42 IU/L (<34)
[2024-09-21 02:14] LABS: ALBUMIN 3.9 g/dL (3.2-4.8); BILIRUBIN TOTAL 0.2 mg/dL (0.1-1.0); PROTEIN TOTAL 6.9 g/dL (6.0-8.3)
[2024-09-21 02:16] LABS: BILIRUBIN DIRECT < 0.1 mg/dL (<=3.0)
[2024-09-21 06:45] VITALS: BP 132/82; PULSE 92; RESP 18; TEMP 36.78072; O2SAT 99
== END 2024-09-21 11:00 | disposition home or self-care (01) ==
LOC: ER 00:25
DX: F10.129 Alcohol abuse with intoxication, unspecified (principal); F31.9 Bipolar disorder, unspecified; F20.9 Schizophrenia, unspecified; F41.9 Anxiety disorder, unspecified; I10 Essential (primary) hypertension; Z59.00 Homelessness unspecified; Z79.899 Other long term (current) drug therapy; Z88.0 Allergy status to penicillin; Z20.822 Contact with and (suspected) exposure to COVID-19; Y90.8 Blood alcohol level of 240 mg/100 ml or more
CPT/HCPCS: 36415; 80048; 80076; 80305; 80307; 80320; 80329; 81003; 85025; 87426; 99285; G0480